=== PATIENT | female | born 2000 | race Caucasian/White ===

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

== ENCOUNTER 2020-03-07 12:27 | Outpatient (REF) | payer MEDICAID, SELFPAY ==
[2020-03-10 21:26] LABS: COVID-19 RT-PCR Result NEGATIVE (Negative)
== END 2020-03-07 12:47 ==
LOC: NCHCN 12:27
PROVIDERS: PCP Nurse Practitioner Family; Visit Provider Nurse Practitioner Family
DX: Z11.59 Encounter for screening for other viral diseases (principal)
CPT/HCPCS: U0003

== ENCOUNTER 2021-06-22 18:03 | Outpatient (REF) | payer MEDICAID, SELFPAY ==
[2021-06-24 14:03] LABS: Chlamydia Result Negative (Negative); GC Result Negative (Negative)
== END 2021-06-22 18:04 | disposition home or self-care (01) ==
LOC: LBN 18:03
PROVIDERS: PCP Nurse Practitioner Family; Visit Provider Nurse Practitioner Family
DX: Z11.3 Encounter for screening for infections with a predominantly sexual mode of transmission (principal)
CPT/HCPCS: 87491; 87591

== ENCOUNTER 2021-09-22 11:50 | Outpatient (REF) | payer MEDICAID, SELFPAY ==
--- NOTE | 2021-09-22 11:15 | PAPFT_PTH ---
PATIENT: Yaneli Borrero LOC: [facility] U#:[id number] AGE/SX: 21/F ROOM: RE09/22/[address]: GLORIA Wright : 2000 BED: DIS: 09/22/2021 SPEC #: [id number] RECD: 09/22/21 12:05 STATUS: JUVENTINO REQ #: [id number] TIP: 09/22/21 11:[address]: Gillian Kaminski DEPT: [facility] Cytology RECD BY: Muriel Blanco ENTERED: 09/22/21 12:06 SP TYPE: PAPFT OTHR DR: Dallas De Leon Tissues: 1 - CX/ENDOCX FOR PAP SMEARS Procedures: PAP THIN PREP/[facility] Screening Comments: [id number]
== END 2021-09-22 11:51 | disposition home or self-care (01) ==
LOC: LBN 11:50
PROVIDERS: PCP Nurse Practitioner Family; Visit Provider Nurse Practitioner Family
DX: Z12.4 Encounter for screening for malignant neoplasm of cervix (principal)
CPT/HCPCS: 88142